=== PATIENT | male | born 1970 | race Two or more races ===

== ENCOUNTER → 2024-08-23 | Emergency (ER) | payer OTHER ==
[~2024-08-23] VITALS: Ht 172.7 cm; Wt 79.4 kg
[~2024-08-23] MED LIST: ACETAMINOPHEN 500 MG GEL..CAP PO ONE; ACETAMINOPHEN 500 MG GEL..CAP PO STA; ALBUTEROL2.5 MG/3 M IH; AZITHROMYCIN500 MG PO; BENZONATATE 100 MG CAPSULE PO STA; IPRATROPIUM/ALBUTEROL SULFATE 3 ML AMPUL.NEB IH ONE; IPRATROPIUM/ALBUTEROL SULFATE 3 ML AMPUL.NEB IH SCH; NEURONTIN800 MG
[2024-08-23 19:23] LABS: BASO % 0.7 % (0.1-1.2); EOS # 0.26 (0.04-0.54); EOS % 2.1 % (0.7-7.0); HEMATOCRIT 43.3 % (40.1-51.0); HEMOGLOBIN 14.9 g/dL (13.7-17.5); LYMPH # 2.94 (1.18-3.74); LYMPH % 23.9 % (19.3-53.1); MEAN CORPUSCULAR HEMOGLOBIN 30.7 pg (25.6-32.2); MONO % 10.6 % (4.7-12.5); NEUT # 7.59 (1.56-6.13); NEUT % 61.7 % (34.0-71.1); PLATELET COUNT 313 K/uL (163-369); RED BLOOD COUNT 4.85 M/uL (4.63-6.08); RED CELL DISTRIBUTION WIDTH 12.9 % (11.6-14.4)
[2024-08-23 20:03] LABS: BILIRUBIN TOTAL 0.45 mg/dL (0.3-1.2); CALCIUM 9.6 mg/dL (8.5-10.1); CREATININE SERUM 1.06 mg/dL (0.70-1.30); GFR 72.27; GLOBULINA 3.8 G/DL (2.4-3.5); POTASSIUM 3.83 mEq/L (3.5-5.1); TOTAL PROTEIN 7.8 gm/dL (6.4-8.2)
[2024-08-23 20:57] LABS: COVID-19 AG NEGATIVE (NEGATIVE)
[2024-08-23 21:05] LABS: INFLUENZA A AG NEGATIVE (NEGATIVE); INFLUENZA B AG NEGATIVE (NEGATIVE)
== END | disposition home or self-care (01) ==
LOC: ER 17:26 → EDSEX 18:10
PROVIDERS: Preventive Medicine Public Health & General Preventive Medicine
DX: J45.901 Unspecified asthma with (acute) exacerbation (principal); J06.9 Acute upper respiratory infection, unspecified; J45.909 Unspecified asthma, uncomplicated; Z20.822 Contact with and (suspected) exposure to COVID-19